=== PATIENT | female | born 1940 | race Caucasian/White ===

== ENCOUNTER 2021-02-07 10:26 | Day surgery (SDC) | payer MEDICARE, OTHER ==
[~2021-02-07] VITALS: Ht 157.5 cm; Wt 91.8 kg
[~2021-02-07 10:26] MED LIST: BUPIVACAINE/PF 0.5% ONE; EPINEPHRINE 1 MG/ML, 1ML ONE; LIDOCAINE/PF 1%, 30ML ONE; OMNIPAQUE 180 MG/ML, 20ML VIAL ONE
[2021-02-07] MEDS ORDERED: HYDROCHLOROTH12.5 MG PO (11:17)
[2021-02-07] MEDS ORDERED: SERT50TA28 PO (11:17)
[2021-02-07] MEDS ORDERED: LISI40TA9 PO (11:17)
[2021-02-07] MEDS ORDERED: HYDR200T72 PO (11:17)
[2021-02-07] MEDS ORDERED: LEVO175T2 PO (11:17)
[2021-02-07] MEDS ORDERED: OMEP-110 PO (11:17)
[2021-02-07] MEDS ORDERED: SOLI10TA2 PO (11:17)
[2021-02-07] MEDS ORDERED: AMLO-150 PO (11:17)
[2021-02-07] MEDS ORDERED: CHLORHEXIDINE 15 ML UDC ONE (11:29)
[2021-02-07] MEDS ORDERED: CHLORHEXIDINE 15 ML UDC PO ONE (11:30)
[2021-02-07] MEDS ORDERED: LACTATED RINGERS 1,000 ML IV SCH (11:30)
[2021-02-07 11:53] VITALS: BP 111/65
[2021-02-07] MEDS ORDERED: MIDAZOLAM 1 MG/ML, 2ML ONE (12:07)
[2021-02-07] MEDS ORDERED: FENTANYL PF 250 MCG/5ML ONE (12:08)
[2021-02-07] MEDS ORDERED: CEFAZOLIN 1,000 MG ONE (13:02)
[2021-02-07] MEDS ORDERED: PROPOFOL 10 MG/ML, 20ML ONE (13:02)
[2021-02-07] MEDS ORDERED: DEXAMETHASONE 4 MG/ML, 5ML ONE (13:02)
[2021-02-07] MEDS ORDERED: ONDANSETRON 2MG/ML, 2ML ONE (13:02)
[2021-02-07] MEDS ORDERED: ROCURONIUM 10MG/ML,5ML ONE (13:02)
[2021-02-07] MEDS ORDERED: SUCCINYLCHOLINE 20 MG/ML, 10ML ONE (13:02)
[2021-02-07] MEDS ORDERED: OMNIPAQUE 180 MG/ML, 20ML VIAL ONE (13:08)
[2021-02-07] MEDS ORDERED: LIDOCAINE 1%-EPI 1:100K, 30ML INFIL ONE (13:29)
[2021-02-07] MEDS ORDERED: BUPIVACAINE/PF-EPI 0.5% 1:200K INFIL ONE (13:29)
[2021-02-07] MEDS ORDERED: OMNIPAQUE 180 MG/ML, 20ML VIAL IT ONE (13:29)
[2021-02-07] MEDS ORDERED: HYDROmorphone 1 MG/ML, 1ML INJ IV PRN (14:30)
[2021-02-07] MEDS ORDERED: hydrALAzine 20 MG/ML, 1ML IV PRN (14:30)
[2021-02-07] MEDS ORDERED: KETOROLAC 30 MG/1 ML IV PRN (14:30)
[2021-02-07] MEDS ORDERED: DIAZEPAM 5 MG/ML, 2ML IV PRN ×2 (14:30)
[2021-02-07] MEDS ORDERED: ONDANSETRON 2MG/ML, 2ML IVPush PRN (14:30)
[2021-02-07] MEDS ORDERED: LABETALOL 5MG/ML, 20ML IV PRN (14:30)
[2021-02-07] MEDS ORDERED: METOCLOPRAMIDE 5 MG/ML, 2ML IV PRN (14:30)
[2021-02-07] MEDS ORDERED: MEPERIDINE/PF 25MG/0.5ML IVPush PRN (14:30)
[2021-02-07] MEDS ORDERED: ALBUTEROL SULFATE 2.5 MG/3 ML NPPB PRN (14:30)
[2021-02-07] MEDS ORDERED: FENTANYL PF 100 MCG/2ML IV PRN (14:30)
[2021-02-07] MEDS ORDERED: PROMETHAZINE 25 MG/ML, 1ML IV PRN (14:30)
[2021-02-07] MEDS ORDERED: OXYcodone 5 MG/5 ML ORAL.SOL UDC PO PRN (14:30)
[2021-02-07] MEDS ORDERED: OXYcodone 5 MG/5 ML ORAL.SOL UDC ONE (14:38)
[2021-02-07] MEDS ORDERED: ACETAMINOPHEN 650 MG/20.3 ML UDC ONE (14:38)
== END 2021-02-07 17:55 | disposition home or self-care (01) ==
LOC: OUT 10:26
PROVIDERS: ATTEND Orthopaedic Surgery Orthopaedic Surgery of the Spine
DX: S32.058A Other fracture of fifth lumbar vertebra, initial encounter for closed fracture (principal); M47.816 Spondylosis without myelopathy or radiculopathy, lumbar region; M48.062 Spinal stenosis, lumbar region with neurogenic claudication; M85.88 Other specified disorders of bone density and structure, other site; Z79.899 Other long term (current) drug therapy; Z98.890 Other specified postprocedural states; X50.0XXA Overexertion from strenuous movement or load, initial encounter; Y93.89 Activity, other specified; Y92.89 Other specified places as the place of occurrence of the external cause; Y99.8 Other external cause status
CPT/HCPCS: 22514; 72100; 88304; 88311; 93005; C1713; J0171; J0330; J0690; J1100; J2250; J2405; J2704; J3010; J7120; Q9965